=== PATIENT | female | born 1990 | race Caucasian/White ===

== ENCOUNTER 2020-11-12 07:08 | Outpatient (REF) | payer MEDICAID, SELFPAY | END 2020-11-12 07:09 | disposition home or self-care (01) | LOC: HO.HOSX 07:08 | PROVIDERS: Visit Provider Physician Assistant | DX: Z13.89 Encounter for screening for other disorder (principal) ==

== ENCOUNTER 2022-07-21 21:54 | Emergency (ER) | payer MEDICAID, SELFPAY ==
[2022-07-21 22:02] VITALS: BP 119/78; PULSE 85; RESP 18; TEMP 36.1; O2SAT 99; BMI 24.0
[2022-07-21 22:25] LABS: MANUAL DIFF FLAG NO
[2022-07-21 22:26] LABS: Basophils Absolute Auto 0.1 X10*3/uL (0.0-0.2); Basophils Percent Auto 0.8 % (0-2); Eosinophils Absolute Auto 0.3 X10*3/uL (0.0-0.4); Eosinophils Percent Auto 1.9 % (0-4); Hematocrit 39.6 % (37.0-47.0); Imm Gran Abs Auto 0.04 X10*3/uL (0.00-0.03); Imm Gran Pct Auto 0.3 % (0.0-0.4); Lymphocytes Absolute Auto 2.6 X10*3/uL (1.2-4.9); Lymphocytes Percent Auto 19.7 % (20-40); Mean Corpuscular HGB Conc 32.8 g/dl (31.0-35.0); Mean Corpuscular Hemoglobin 29.6 pg (27.0-33.0); Mean Corpuscular Volume 90.2 fL (80.0-98.0); Mean Platelet Volume 9.6 fL (9.4-12.3); Monocytes Absolute Auto 0.8 X10*3/uL (0.1-1.2); Neutrophils Absolute Auto 9.3 x10*3/uL (2.0-8.3); Neutrophils Percent Auto 71.3 % (45-73); Platelet Count 348 X10*3/uL (160-400); Red Blood Count 4.39 X10*6/uL (4.20-5.50)
[2022-07-21 22:27] LABS: Appearance Urine Clear; Color Urine Yellow; Glucose Urine UA Negative (Negative); Leukocyte Esterase Urine Negative (Negative); Nitrite Urine Negative (Negative); PH 5.5 (5.0-9.0); Specific Gravity - Urine >= 1.030 (1.005-1.025); Urine Blood Negative (Negative); Urine Ketones Trace mg/dL (Negative); Urine Protein Negative (Neg-Trace)
[2022-07-21 22:40] LABS: Alanine Aminotransferase 18 U/L (0-31); Alkaline Phosphatase 68 U/L (39-117); Anion Gap 8 (12-20); Aspartate Amino Transferase 13 U/L (5-31); Bilirubin Direct < 0.2 mg/dL (0.0-0.5); Bilirubin Total 0.3 mg/dL (0.0-1.0); Blood Urea Nitrogen 21 mg/dL (9-16); Calcium 9.5 mg/dL (8.4-10.2); Carbon Dioxide 25 mmol/L (22-29); Chloride 112 mmol/L (96-108); Creatinine Clr Calc Pharmacy 96.7; Estimated Glomerular Filt Rate > 60; Glucose Random 94 mg/dL (60-115); Lipase 31 U/L (8-78); Sodium 141 mmol/L (135-145); Total Protein 6.6 g/dL (6.5-8.0)
[2022-07-22 00:03] VITALS: BP 101/71; PULSE 78; RESP 18; TEMP 36.4; O2SAT 100
--- NOTE | 2022-07-22 00:06 | ED.ABDPAIN ---
HPI - Abdominal Pain General Chief Complaint: Abdominal Pain Stated Complaint: abdominal pain Time Seen by Provider: 07/21/22 23:50 Source: patient Mode of arrival: ambulatory History of Present Illness HPI narrative: 31-year-old female status post cholecystectomy presents with 2 days of epigastric discomfort that radiates across into the right upper quadrant associated with nausea and vomiting but denies any fever chills or dysuria. Patient states that the pain worsened after eating pizza today and she has known underlying gastritis. Related Data Previous Rx's Medication Instructions Recorded ondansetron HCl 4 mg tablet 4 mg PO Q8H PRN nausea and 07/22/22 vomiting 5 days #14 tabs sucralfate 100 mg/mL oral 1 g (10 mL) PO BID #414 mL 07/22/22 suspension (Carafate) Allergies Allergy/AdvReac Type Severity Reaction Status Date / Time No Known Allergies Allergy Verified 07/21/22 22:01 [No Known Allergies*] Review of Systems Review of Systems Pertinent positives and negatives as stated in HPI PMFSH Past Medical History Source: nursing notes reviewed Social History Social History Advance Directives: No Advance Directives Information Provided: Yes Physical Exam ED Vital Signs: Vital Signs - 24 hr 07/21/22 22:02 07/22/22 00:03 Temperature 97 F 97.6 F Pulse Rate 85 78 Respiratory Rate 18 18 Blood Pressure 119/78 101/71 Pulse Oximetry 99 100 Oxygen Delivery Method Room Air Room Air BMI result Body Mass Index 24.0 VITAL SIGNS: Reviewed. GENERAL: Well developed, well nourished, in no acute distress. HEAD: Normocephalic/atraumatic EYES: PERRLA, EOMI EARS: Ext canals without abnormality OROPHARYNX: no oral lesions noted, posterior pharynx clear LUNGS: Normal breath sounds. No adventitious sounds or accessory muscle use. SpO2<100> CARDIOVASCULAR: Regular rate and rhythm without noted murmurs ABDOMEN: Soft, epigastric discomfort, non-distended with bowel sounds. MUSCULOSKELETAL: No tenderness, deformities, or effusions noted on gross inspection. EXTREMITIES: No cyanosis, clubbing or edema. SKIN: Inspection of the skin reveals no rashes NEUROLOGIC: Alert and oriented x 4. Strength and sensation to light touch were grossly intact x 4. Medical Decision Making Medical Decision Making [facility] Narrative: 31-year-old female with possible gastritis/gastric ulcer/pancreatitis and low clinical suspicion for retained stone, pneumonia. Labs, UA, GI cocktail, anti emetic. On re-evaluation and review of investigations my interpretation is that patient has a significant episode of gastritis. She is feeling somewhat better but will receive an additional dose of Zofran and Carafate. All results discussed with her at bedside and she agrees with the current treatment regimen and will be discharged with as needed anti emetic. The leukocytosis is noted in felt to be secondary to the stress/reactive response of vomiting. Differential Diagnosis Differential Diagnoses: The differential diagnosis associated with the presentation includes Please see the discussion above Lab Data [facility] Lab Attestation statement: I reviewed the patient's lab results. Please see the discussion above 07/21/22 22:16 07/21/22 22:16 Labs: Lab Results 07/21/22 07/21/22 07/21/22 Range/Units 22:16 22:16 22:20 WBC 13.0 H (4.8-10.8) X10*3/uL RBC 4.39 (4.20-5.50) X10*6/uL Hgb 13.0 (12.0-16.0) g/dl Hct 39.6 (37.0-47.0) % MCV 90.2 (80.0-98.0) fL MCH 29.6 (27.0-33.0) pg MCHC 32.8 (31.0-35.0) g/dl RDW 13.0 (11.0-16.0) % Plt Count 348 (160-400) X10*3/uL MPV 9.6 (9.4-12.3) fL Immature Gran % (Auto) 0.3 (0.0-0.4) % Neut % (Auto) 71.3 (45-73) % Lymph % (Auto) 19.7 L (20-40) % [place] % (Auto) 6.0 (2-11) % Eos % (Auto) 1.9 (0-4) % Baso % (Auto) 0.8 (0-2) % Lymph # (Auto) 2.6 (1.2-4.9) X10*3/uL [place] # (Auto) 0.8 (0.1-1.2) X10*3/uL Eos # (Auto) 0.3 (0.0-0.4) X10*3/uL Baso # (Auto) 0.1 (0.0-0.2) X10*3/uL Abs Immat Gran (auto) 0.04 H (0.00-0.03) X10*3/uL Absolute Neuts (auto) 9.3 H (2.0-8.3) x10*3/uL Absolute Nucleated RBC 0.000 (0.0-0.012) X10*3/uL Nucleated RBC % (auto) 0.0 (0.0-0.2) /100WBC Sodium 141 (135-145) mmol/L Potassium 4.0 (3.3-5.1) mmol/L Chloride 112 H (96-108) mmol/L Carbon Dioxide 25 (22-29) mmol/L Anion Gap 8 L (12-20) BUN 21 H (9-16) mg/dL Creatinine 0.66 (0.5-1.4) mg/dL Estim Creat Clear Calc 96.7 Estimated GFR > 60 Random Glucose 94 (60-115) mg/dL Calcium 9.5 (8.4-10.2) mg/dL Total Bilirubin 0.3 (0.0-1.0) mg/dL Direct Bilirubin < 0.2 (0.0-0.5) mg/dL AST 13 (5-31) U/L ALT 18 (0-31) U/L Alkaline Phosphatase 68 (39-117) U/L Total Protein 6.6 (6.5-8.0) g/dL Albumin 4.0 (3.5-5.0) g/dL Lipase 31 (8-78) U/L Urine Color Yellow Urine Appearance Clear Urine pH 5.5 (5.0-9.0) Ur Specific [place] >= 1.030 H (1.005-1.025) Urine Protein Negative (Neg-Trace) mg/dL Urine Glucose (UA) Negative (Negative) mg/dL Urine Ketones Trace (Negative) mg/dL Urine Blood Negative (Negative) Urine Nitrite Negative (Negative) Ur Leukocyte Esterase Negative (Negative) Medications Administered Discontinued Medications Generic Name Dose Route Start Last Admin Trade Name Freq PRN Reason Stop Dose Admin Al Hydroxide/Mg Hydroxide 30 ml 07/22/22 00:05 07/22/22 00:24 Magnesium Hydrox/Alum Hydrox 30 Ml Oral.Susp PO 07/22/22 00:06 30 ml ONCE ONE Administration Lidocaine HCl 10 ml 07/22/22 00:05 07/22/22 00:23 Lidocaine Hcl Viscous 2 % 15 Ml Solution MUCOUS MEM 07/22/22 00:06 10 ml ONCE ONE Administration Ondansetron HCl 4 mg 07/22/22 00:05 07/22/22 00:24 Ondansetron Odt 4 Mg Tab.Rapdis TRANSLINGU 07/22/22 00:06 4 mg ONCE ONE Administration Ondansetron HCl 4 mg 07/22/22 01:08 07/22/22 01:42 Ondansetron Odt 4 Mg Tab.Rapdis TRANSLINGU 07/22/22 01:09 4 mg ONCE ONE Administration Sucralfate 1 gm 07/22/22 01:08 07/22/22 01:42 Sucralfate Oral Suspension 1 Gm/10 Ml Oral.Susp PO 07/22/22 01:09 1 gm ONCE ONE Administration Discharge Plan Discharge Clinical Impression: Gastritis Patient Disposition: Home, Self-Care Instructions: Gastritis (ED), Diet for Stomach Ulcers and Gastritis (ED) Additional Instructions: 1. Please follow-up with primary care provider. Return to the ER for any issues. Prescriptions: New ondansetron HCl 4 mg tablet 4 mg PO Q8H PRN (Reason: nausea and vomiting) 5 Days Qty: 14 0RF sucralfate [Carafate] 100 mg/mL suspension 1 g PO BID Qty: 414 0RF Referrals: Marisela Lutz MD [Primary Care Provider] - Stand Alone Forms: Work/School Release
[2022-07-22] MEDS: Lidocaine HCl Viscous 2 % 15 ML SOLUTION 10 ML MUCOUS MEM (00:23)
[2022-07-22] MEDS: Ondansetron ODT 4 MG TAB.RAPDIS TRANSLINGU ×2 (00:24→01:42)
[2022-07-22] MEDS: Magnesium Hydrox/Alum Hydrox 30 ML ORAL.SUSP PO (00:24)
[2022-07-22] MEDS: Sucralfate Oral Suspension 1 GM/10 ML ORAL.SUSP PO (01:42)
== END 2022-07-22 02:18 | disposition home or self-care (01) ==
PROVIDERS: Emergency Provider Student in an Organized Health Care Education/Training Program; PCP Internal Medicine
DX: K29.70 Gastritis, unspecified, without bleeding (principal); R10.13 Epigastric pain; Z79.899 Other long term (current) drug therapy
CPT/HCPCS: 36415; 80048; 80076; 81003; 83690; 85025; 99283; 99284